=== PATIENT | male | born 2000 | race Caucasian/White ===

== ENCOUNTER 2023-11-23 21:46 | Emergency (ER) | payer SELFPAY ==
[~2023-11-23] VITALS: Ht 185.4 cm; Wt 83.0 kg
[2023-11-23 22:33] VITALS: BP 140/90; PULSE 97; RESP 16; O2SAT 100
[2023-11-24 00:45] VITALS: TEMP 98.6
[2023-11-24] MEDS: ACETAMINOPHEN 325MG TABLET PO NR (00:45)
== END 2023-11-24 06:08 | disposition left against medical advice (07) ==
LOC: ER 21:46
DX: S92.252A Displaced fracture of navicular [scaphoid] of left foot, initial encounter for closed fracture (principal); W18.39XA Other fall on same level, initial encounter; Y93.89 Activity, other specified; Y92.89 Other specified places as the place of occurrence of the external cause; Y99.8 Other external cause status
CPT/HCPCS: 29125; 73110; 73130; 99284